=== PATIENT | male | born 2000 | race Caucasian/White ===

== ENCOUNTER 2023-01-01 17:26 | Emergency (ER) | payer BC, SELFPAY ==
--- NOTE | 2023-01-01 17:29 | ED.URI ---
HPI - URI/Sore Throat General Chief Complaint: Upper Respiratory Infection Stated Complaint: EARACHE/SORE THROAT Time Seen by Provider: 01/01/23 17:29 Source: patient and RN notes reviewed History of Present Illness HPI Narrative: Patient is a 22-year-old male who presents to urgent care with complaints of swollen lymph nodes and sore throat. Patient states that it started a couple days ago and is now causing a right earache. Denies any fever, nausea or vomiting. Patient has not taken anything [id number] for his symptoms. No other acute complaints. No acute distress noted. Patient aware of the plan of care. Some parts of this dictation were generated by voice recognition software and may contain typographical and/or grammatical inaccuracies. Related Data Allergies Allergy/AdvReac Type Severity Reaction Status Date / Time No Known Allergies Allergy Unverified 01/01/23 17:28 Review of Systems Review of Systems: CONSTITUTIONAL: Denies fever, chills, or sweats. EYES: Denies visual changes, redness, or discharge. ENT: Reports of sore throat and swollen lymph nodes CARDIOVASCULAR: Denies chest pain, palpitations, or edema. RESPIRATORY: Denies cough or dyspnea. GASTROINTESTINAL: Denies abdominal pain, nausea, vomiting, or diarrhea. GENITOURINARY: Denies dysuria or hematuria. SKIN: Denies rash or itching. MUSCULOSKELETAL: Denies back pain, joint pain, or myalgia. NEUROLOGIC: Denies headache, numbness, or weakness. All other systems reviewed are negative, except as documented in HPI. PMFSH Comments At the time of my signature, I reviewed and agree with the nursing past medical, surgical, social, and family history. There is no relevant family history pertinent to the patient complaint. Exam Narrative: GENERAL: This is a well-nourished, well-developed patient, in no apparent distress. HEAD: normocephalic, atraumatic. EYES: PERRL. Sclera clear/white. Vision is grossly intact. EARS: External ears normal, auditory canals clear and without drainage, TMs normal without perforation. Hearing grossly intact. NOSE: External nose normal with no obvious nasal discharge, nares without redness, no rhinorrhea. THROAT: Mucous membranes moist, moderate erythema to posterior pharynx with ulceration noted to the right. NECK: Neck supple, non-tender mild bilateral submandibular lymphadenopathy RESPIRATORY: Clear to auscultation. Breath sounds equal bilaterally. No wheezes, rales, or rhonchi. SKIN: warm, intact with no suspicious lesions or rash, good texture and turgor. NEURO: awake, alert, and oriented to person, place and time. There were no obvious focal neurologic abnormalities. EXTREMITIES: No clubbing, cyanosis, or edema. Course Course Level of Care: Express Care Visit Vital Signs Vital signs: Vital Signs Temperature 98.6 F 01/01/23 17:38 Pulse Rate 68 01/01/23 17:38 Respiratory Rate 16 01/01/23 17:38 Blood Pressure 118/76 01/01/23 17:38 Pulse Oximetry 100 01/01/23 17:38 Temperature 98.6 F 01/01/23 17:38 Pulse Rate 68 01/01/23 17:38 Respiratory Rate 16 01/01/23 17:38 Blood Pressure 118/76 01/01/23 17:38 Pulse Oximetry 100 01/01/23 17:38 Reviewed MDM - URI/Sore Throat MDM Narrative Medical decision making narrative: Reviewed lab results with the patient. He is aware that strep swab was negative. Educated patient on culture we will call within 72 hours if culture is positive antibiotics are necessary. Advised patient use Tylenol/ibuprofen as needed for pain. May use a warm compress to the ER for comfort. Complete the steroid regimen as prescribed. Be sure to eat and drink with medication. Follow-up with your PCP within 2-5 days or for worsening symptoms or failure to improve. Differential Diagnosis Differential diagnosis: Likely upper respiratory infection, croup, otitis media, sinusitis, viral infection, bronchitis, influenza and pharyngitis Lab Data Attestation: I reviewed
[2023-01-01 17:38] VITALS: BP 118/76; PULSE 68; RESP 16; TEMP 37; O2SAT 100
== END 2023-01-01 17:58 | disposition home or self-care (01) ==
PROVIDERS: Emergency Provider Nurse Practitioner Family
DX: J02.9 Acute pharyngitis, unspecified (principal)
CPT/HCPCS: 87081; 87147; 87880; 99203; G0463

== ENCOUNTER 2023-04-11 16:38 | Emergency (ER) | payer BC, SELFPAY ==
[2023-04-11 16:48] VITALS: BP 133/93; PULSE 73; RESP 16; TEMP 36.9; O2SAT 99
--- NOTE | 2023-04-11 16:58 | ED.URI ---
HPI - URI/Sore Throat General Chief Complaint: Upper Respiratory Infection Stated Complaint: Strep Throat Time Seen by Provider: 04/11/23 16:51 Source: patient and RN notes reviewed Mode of arrival: ambulatory Limitations: no limitations History of Present Illness HPI Narrative: Patient presents today complaining of a 2 day history of sore throat and nasal congestion. Denies any additional symptoms. Currently rates his pain 3/10 and has been taking no [id number] treatment prior to arrival. Reports remain has also been ill. Patient had strep throat a few months ago and was treated with amoxicillin. Related Data Allergies Allergy/AdvReac Type Severity Reaction Status Date / Time No Known Allergies Allergy Verified 04/11/23 16:48 Review of Systems Review of Systems: CONSTITUTIONAL: Denies body aches, fever, chills, or sweats. EYES: Denies visual changes, redness, or discharge. ENT: Denies rhinorrhea, or otalgia.+ sore throat, congestion CARDIOVASCULAR: Denies chest pain, palpitations, or edema. RESPIRATORY: Denies cough or dyspnea. GASTROINTESTINAL: Denies abdominal pain, nausea, vomiting, or diarrhea. GENITOURINARY: Denies dysuria or hematuria. SKIN: Denies rash, itching, or wounds. MUSCULOSKELETAL: Denies back pain, joint pain, or myalgia. NEUROLOGIC: Denies headache, numbness, tingling, or weakness. PSYCH: Denies depression or anxiety. PMFSH Comments At time of signature, I have reviewed and agree with nursing past medical, surgical, social and family history unless otherwise noted. Please see nursing chart for further information. There is no relevant family history pertinent to the presenting complaint Exam Narrative: GENERAL: Well-appearing, well-nourished, and in no acute distress. HEAD: Normocephalic, atraumatic. EYES: EOMI. No redness or drainage. Conjunctivae normal. ENT: Mucous membranes pink and moist. Nares clear. No rhinorrhea. TMs normal bilaterally. Throat mildly erythematous without edema or exudate. Uvula midline. NECK: Normal AROM. Supple. No lymphadenopathy. CHEST: No respiratory distress. Clear to auscultation. HEART: Regular rate and rhythm. No murmur appreciated. Normal peripheral pulses. EXTREMITIES: Normal range of motion. No edema. SKIN: Warm, dry, no rash. Capillary refill normal. Normal skin turgor. NEURO: No focal deficits. Alert and oriented x3. Gait steady. PSYCH: Normal affect. No signs of depression or anxiety. Course Course Level of Care: Express Care Visit Vital Signs Vital signs: Vital Signs Temperature 98.5 F 04/11/23 16:48 Pulse Rate 73 04/11/23 16:48 Respiratory Rate 16 04/11/23 16:48 Blood Pressure 133/93 H 04/11/23 16:48 Pulse Oximetry 99 04/11/23 16:48 Oxygen Delivery Room Air 04/11/23 16:48 Temperature 98.5 F 04/11/23 16:48 Pulse Rate 73 04/11/23 16:48 Respiratory Rate 16 04/11/23 16:48 Blood Pressure 133/93 H 04/11/23 16:48 Pulse Oximetry 99 04/11/23 16:48 Oxygen Delivery Room Air 04/11/23 16:48 Reviewed. Pt has been instructed to follow up with his PCP regarding his elevated blood pressure today. MDM - URI/Sore Throat MDM Narrative Medical decision making narrative: Rapid strep positive. Will treat with Keflex. Anticipatory guidance given. Differential Diagnosis Differential diagnosis: Likely upper respiratory infection, pharyngitis and other (Strep throat) Lab Data Attestation: I reviewed the patient's lab results. Labs: Strep Screen Positive Group A Strep *(Reference Range: Negative)* Critical Care Time Critical Care Time Critical Care Time: No Discharge Plan Discharge Clinical Impression: Strep throat Patient Disposition: Home, Self-Care Condition: Stable Instructions: Antibiotic Form, Strep Throat (ED) Additional Instructions: You have tested positive for strep throat. Please take the Keflex as prescr
== END 2023-04-11 17:04 | disposition home or self-care (01) ==
PROVIDERS: Emergency Provider Nurse Practitioner
DX: J02.0 Streptococcal pharyngitis (principal)
CPT/HCPCS: 87880; 99213; G0463

== ENCOUNTER 2023-07-06 18:26 | Emergency (ER) | payer BC, SELFPAY ==
--- NOTE | ~2023-07-06 | XR_ITS ---
EXAMINATION: XR hand LT min 3V DATE: 07/06/2023 18:41 INDICATION: Left hand pain after being hit with a hockey puck TECHNIQUE: Posteroanterior, oblique and lateral views of the left hand were obtained. COMPARISON: None. FINDINGS: Fracture, likely mildly comminuted the neck of the left fifth metacarpal with 60 degrees the palmar a ngulation. Otherwise normal alignment in the left hand. No other fractures identified. Joint spaces a re normal. IMPRESSION: 1. 60 degree palmar angulation of a mildly comminuted boxer's fracture the neck of the left fifth met acarpal. Reviewed, dictated and finalized at location A. IMPRESSION: 1. 60 degree palmar angulation of a mildly comminuted boxer's fracture the neck of the left fifth metacarpal.
[2023-07-06 18:40] VITALS: BP 123/78; PULSE 74; RESP 16; TEMP 36.9; O2SAT 99
--- NOTE | 2023-07-06 18:49 | ED.UPPEXIN ---
HPI - Extremity Injury (Upper) General Chief Complaint: Extremity Injury, Upper Stated Complaint: INJURED L HAND Source: patient and RN notes reviewed History of Present Illness HPI narrative: 23-year-old male presents to urgent care with complaints of left hand pain and swelling. Patient states prior to arrival he was playing hockey when the hockey puck hit his left hand. patient denies numbness or tingling. Denies any other symptoms. Patient took 600 mg of ibuprofen prior to game. Related Data Home Medications Medication Instructions Recorded Confirmed No Home Medications 07/06/23 07/06/23 Allergies Allergy/AdvReac Type Severity Reaction Status Date / Time No Known Allergies Allergy Verified 07/06/23 18:33 Review of Systems Review of Systems: CONSTITUTIONAL: Denies fever, chills, or sweats. EYES: Denies visual changes, redness, or discharge. ENT: Denies otalgia and sore throat CARDIOVASCULAR: Denies chest pain, palpitations, or edema. RESPIRATORY: Denies cough or dyspnea. GASTROINTESTINAL: Denies abdominal pain, nausea, vomiting, or diarrhea. GENITOURINARY: Denies dysuria or hematuria. SKIN: Denies rash or itching. MUSCULOSKELETAL: left hand pain NEUROLOGIC: Denies headache, numbness, or weakness. Pertinent positives per HPI. PMFSH Comments At the time of my signature, I reviewed and agree with the nursing past medical, surgical, social, and family history. There is no relevant family history pertinent to the patient complaint. Exam Narrative: GENERAL: This is a well-nourished, well-developed patient, in no apparent distress. HEAD: normocephalic, atraumatic. EYES: Sclera clear/white. Vision is grossly intact. EARS: External ears normal, auditory canals clear and without drainage. Hearing grossly intact. NOSE: External nose normal with no obvious nasal discharge, nares without redness, no rhinorrhea. THROAT: Mucous membranes moist, posterior pharynx clear. NECK: Neck supple, non-tender without lymphadenopathy, masses or thyromegaly. CARDIOVASCULAR: Regular rate RESPIRATORY: no respiratory distress SKIN: warm, intact with no suspicious lesions or rash, good texture and turgor. NEURO: awake, alert, and oriented to person, place and time. There were no obvious focal neurologic abnormalities. EXTREMITIES: tenderness and swelling over left 5th MCP joint BACK: Nontender without deformity or crepitus. No flank tenderness. Course Course Level of Care: Express Care Visit Vital Signs Vital signs: Vital Signs Temperature 98.4 F 07/06/23 18:40 Pulse Rate 74 07/06/23 18:40 Respiratory Rate 16 07/06/23 18:40 Blood Pressure 123/78 07/06/23 18:40 Pulse Oximetry 99 07/06/23 18:40 Temperature 98.4 F 07/06/23 18:40 Pulse Rate 74 07/06/23 18:40 Respiratory Rate 16 07/06/23 18:40 Blood Pressure 123/78 07/06/23 18:40 Pulse Oximetry 99 07/06/23 18:40 Review MDM - Extremity Injury (Upper) MDM Narrative Medical decision making narrative: Use the RICE method at home. May take ibuprofen and/or Tylenol if needed. Follow-up with specialist on saturday. Mild pressure was applied to dorsal side of Fx while pt was being splinted. Pt states he has a hand specialist at [facility] that he will see. Differential Diagnosis Differential diagnosis: Likely finger sprain, dislocation of finger and fracture of hand Imaging Data Radiologist's impression: Express [facility] [place] [id number] [facility] [place] [address] XRay Report Signed Patient: Feliz Guzman : 2000 MR#: [id number] Age/Sex: 23 / M Acct:[id number] Loc: [facility]? ? ADM Date: 07/06/23Attending Dr: Ordering Physician: Susannah Valderrama APRN Date of Service: 07/06/23 Procedure(s): XR hand LT min 3V Accession Number(s): [id number] cc: Susannah Valderrama APRN; [employer] PHYSICIAN~ EXAMINATION: XR hand LT min 3V DATE: 07/06/2023 18:41 INDICA
== END 2023-07-06 18:58 | disposition home or self-care (01) ==
PROVIDERS: Emergency Provider Nurse Practitioner Family
DX: S62.92XA Unspecified fracture of left hand, initial encounter for closed fracture (principal); W20.8XXA Other cause of strike by thrown, projected or falling object, initial encounter; Y93.22 Activity, ice hockey
CPT/HCPCS: 29125; 73130; 99214; A4565; G0463

== ENCOUNTER 2023-10-29 12:31 | Emergency (ER) | payer BC, SELFPAY ==
[2023-10-29 12:38] VITALS: BP 129/70; PULSE 97; RESP 16; TEMP 37.2; O2SAT 100
--- NOTE | 2023-10-29 13:24 | ED.URI ---
HPI - URI/Sore Throat General Chief Complaint: Upper Respiratory Infection Stated Complaint: Cough/fever Time Seen by Provider: 10/29/23 13:20 Source: patient, RN notes reviewed and old records reviewed Mode of arrival: ambulatory Limitations: no limitations History of Present Illness HPI Narrative: 3 year old male presents to [facility] care with complaints of 3-4 days of cough and congestion.Patient reports that since yesterday he has had fevers,sweats, chills, headache and also some body aches. Patient has taken Ibuprofen for his body aches and some Sudafed for his congestion. Patient states that he has not had a flu shot this year. Patient denies any shortness of breath or any nausea vomiting or diarrhea. MD elicited complaint: cough (congestion) Onset (ago): day(s) (3-4 days cough, 2 days fever, body aches) Pain scale (0-10): 2 Able to tolerate fluids by mouth: Yes Treatments prior to arrival: ibuprofen and other (Sudafed) Related Data Allergies Allergy/AdvReac Type Severity Reaction Status Date / Time No Known Allergies Allergy Verified 07/06/23 18:33 Review of Systems Review of Systems: CONSTITUTIONAL: Reports malaise, chills, sweats, or fever. EYES: Denies visual changes, redness, or discharge. ENT: Reports rhinorrhea, congestion, sinus pain,no otalgia and no sore throat. CARDIOVASCULAR: Denies chest pain, palpitations, or edema. RESPIRATORY: Reports cough.? Denies dyspnea. GASTROINTESTINAL: Denies abdominal pain, nausea, vomiting, diarrhea SKIN: Denies rash or itching. MUSCULOSKELETAL: Reports myalgia. NEUROLOGIC: Denies headache. All systems reviewed & are unremarkable except as noted in HPI and below PMFSH Past Medical History Medical History (Updated 10/30/23 @ 19:45 by Layla Greenwood NP) Fracture, clavicle closed, shaft Social History Social History Smoking status: Never smoker Alcohol intake: current Alcohol use details: social Substance use type: does not use Living arrangements: with family Gender identity (if verbalized by the patient): Male Comments At time of signature, agree with nursing past medical, surgical, social and family history. There is no relevant family history pertinent to the presenting complaint Exam Narrative: GENERAL: Well-appearing, well-nourished, and in no acute distress. HEAD: Normocephalic EYES: PERRLA, conjunctivae clear ENT: Nares clear, turbinates edematous and erythematous, clear discharge. Mucous membranes moist. TM pearly heath with dull light reflex bilaterally; no tragal tenderness. Oropharynx erythematous without lesions. Tonsils not enlarged and without exudate, no drooling, no hoarseness, no trismus, uvula midline.post nasal drainage noted. NECK: Supple. No lymphadenopathy CHEST: Clear to auscultation, breath sounds equal. No wheezing, rhonchi, rales, or stridor. No respiratory distress, speaks in full sentences.cough,SAO2 100% on room air HEART: Regular rate and rhythm. No murmur heard. SKIN: Warm, dry, no rash. NEURO: Alert and oriented x3. PSYCH: Normal mood and affect Course Course Emergency Course: Patient is aware of diagnosis, understands and agrees to treatment plan.? Anticipatory guidance given.? Patient agrees to follow-up as directed and is aware of reasons to seek care at the emergency department. Portions of this record may have been created with voice recognition software Level of Care: Express Care Visit Vital Signs Vital signs: Vital Signs Temperature 37.2 C 10/29/23 12:38 Pulse Rate 97 10/29/23 12:38 Respiratory Rate 16 10/29/23 12:38 Blood Pressure 129/70 10/29/23 12:38 Pulse Oximetry 100 10/29/23 12:38 Temperature 37.2 C 10/29/23 12:38 Pulse Rate 97 10/29/23 12:38 Respiratory Rate 16 10/29/23 12:38 Blood Pressure 129/70 10/29/23 12:38 Pulse Oximetry 100 10/29/23 12:38 Reviewed [facility] -
== END 2023-10-29 13:33 | disposition home or self-care (01) ==
PROVIDERS: Emergency Provider Registered Nurse
DX: J10.1 Influenza due to other identified influenza virus with other respiratory manifestations (principal); Z20.822 Contact with and (suspected) exposure to COVID-19
CPT/HCPCS: 87426; 87804; 99213; G0463